=== PATIENT | female | born 1955 | race Caucasian/White ===

== ENCOUNTER 2020-07-20 06:35 | Emergency (ER) | payer BC ==
[2020-07-20] MEDS ORDERED: Sodium Chloride 0.9% 10 ML Syringe FLUSH PRN ×2 (07:06→08:22)
--- NOTE | 2020-07-20 07:13 | EDM.PDOC ---
ED HPI GENERAL MEDICAL PROBLEM - General Chief Complaint: Respiratory Problem Stated Complaint: SENT BY CAL, POSSIBLE BLOOD CLOT IN LUNG Time Seen by Provider: 07/20/20 06:59 Source of Information: Reports: Patient History Limitations: Reports: No Limitations - History of Present Illness INITIAL COMMENTS - FREE TEXT/NARRATIVE: 64-year-old female presents to the ED for CT of the chest to rule out pulmonary embolism. She was in [place] yesterday and did see her air surveillance operator to wanted an MRI of her chest and heart done. It was carried out and then she received a phone call on her way back to [place] last evening suggesting that she may have a blood clot in her lung. She stayed with a friend overnight here in [place] and her went on home to [place]. She is feeling mildly short of breath on minimal exertion she cannot state that there is been a definitive change in the last few days. She reports she is not been taking her Lasix for the last 3 to 4 days due to travel. She has chronic dependent edema of her lower extremities and history of congestive heart failure. She is also on Eliquis twice daily she does not know the dosage but its most likely 5 mg twice daily. She does not believe she has any kidney issues. She denies cough sputum production or hemoptysis. No pleuritic chest pain. No past history of DVT. O2 sats on room air at rest are 97%. Onset Date: 07/19/20 (told she may have a blood clot in her lung after MRI of her heart was done in [facility] yesterday. ) Duration: Hour(s):, Other (asymptomatic) Location: Reports: Chest Quality: Reports: Other Severity: Mild (Mild dyspnea which she does not believe is any worse than normal.) Improves with: Reports: Rest Worsens with: Reports: Movement (Walking) Context: Denies: Activity ( makes her short of breath at most times.), Exercise, Lifting, Sick Contact, Trauma, Other Associated Symptoms: Reports: Cough, Malaise. 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: Other (see below) (Only her regular medicines.) - Related Data Allergies Allergy/AdvReac Type Severity Reaction Status Date / Time polymyxin B Allergy Redness Verified 07/20/20 06:50 Sulfa (Sulfonamide Allergy Rash Verified 07/20/20 06:50 Antibiotics) trimethoprim Allergy Redness Verified 07/20/20 06:50 Home Meds: Home Meds Acetaminophen [Tylenol Arthritis] 650 mg PO ASDIRECTED PRN 04/01/19 [History] Apixaban [Eliquis] 5 mg PO BID 04/01/19 [History] Escitalopram Oxalate 20 mg PO DAILY 04/01/19 [History] Fluconazole [Diflucan] 400 mg PO DAILY 04/01/19 [History] Furosemide 20 mg PO DAILY 04/01/19 [History] Hydrocodone/Acetaminophen [Hydrocodon-Acetaminophen 5-325] 1 each PO ASDIRECTED PRN 04/01/19 [History] LORazepam 1 mg PO ASDIRECTED PRN 04/01/19 [History] Levothyroxine 75 mcg PO DAILY 04/01/19 [History] Loperamide HCl [Imodium A-D] 2 mg PO ASDIRECTED PRN 04/01/19 [History] Metoprolol Tartrate 12.5 mg PO DAILY 04/01/19 [History] Mirtazapine 15 mg PO BEDTIME 04/01/19 [History] Ondansetron [Zofran] 4 mg PO ASDIRECTED PRN 04/01/19 [History] Pantoprazole Sodium 40 mg PO DAILY 04/01/19 [History] Piperacillin/Tazobactam [Zosyn] 3.375 gm IV Q8HR 04/01/19 [History] Past Medical History HEENT History: Reports: None Cardiovascular History: Reports: Afib, Hypertension, SOB on Exertion Respiratory History: Reports: None Gastrointestinal History: Reports: GERD, Other (See Below) (Chronic diarrhea. 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: Musculoskeletal History: Reports: Fracture, Other (See Below) Other Musculoskeletal History: Osteopenia Neurological History: Reports: None Psychiatric History: Reports: Depression, Other (See Below) (Chronic insomnia) Endocrine/Metabolic History: Reports: Obesity/BMI 30+ Other Endocrine/Metabolic History: borderline diabetic Hematologic History: Reports: None Immunologic History: Reports: None Oncologic (Cancer) History: Reports: Breast Dermatologic History: Reports: None - Infectious Disease History 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, VRE - Past Surgical History GI Surgical History: Reports: Colon Other GI Surgeries/Procedures: septic abscess Female Surgical History: Reports: Mastectomy, Other (See Below) Other Female Surgeries/Procedures: axillary lymph node dissection Musculoskeletal Surgical History: Reports: ORIF Other Musculoskeletal Surgeries/Procedures:: hx of ORIF right Tibia and Right Femur ( has hardware in both) Oncologic Surgical History: Reports: Mastectomy Social & Family History - Family History Family Medical History: No Pertinent Family History Cardiac: Reports: Hypertension Other Cardiac Family History: Per patient, "both of my parents had heart issues." - Tobacco Use Tobacco Use Status *Q: Former Tobacco User Years of Tobacco use: 20 Packs/Tins Daily: 0.5 Used Tobacco, but Quit: Yes Month/Year Tobacco Last Used: 2006 - Caffeine Use Caffeine Use: Reports: Coffee, Soda - Recreational Drug Use Recreational Drug Use: No - Living Situation & Occupation Living situation: Reports: Occupation: Retired ED ROS GENERAL - Review of Systems Review Of Systems: See Below Constitutional: Reports: Malaise, Fatigue, Weight Gain (Believes she may have gained some weight since she stopped her Lasix a few days ago.). Denies: Fever, Chills, Night Sweats, Diaphoresis, Decreased Appetite, Weight Loss HEENT: Reports: Glasses Respiratory: Reports: Shortness of Breath. Denies: Wheezing, Pleuritic Chest Pain (On exertion.), Cough, Sputum, Hemoptysis Cardiovascular: Reports: Blood Pressure Problem, Dyspnea on Exertion, Edema (Chronic), Palpitations ( edema both lower extremities.). Denies: Chest Pain, Claudication, Lightheadedness, Orthopnea Endocrine: Reports: Fatigue ( History of atrial fibrillation) GI/Abdominal: Reports: Diarrhea : Reports: Frequency, Incontinence (Mainly stress-induced.) Musculoskeletal: Reports: Back Pain, Joint Pain Skin: Reports: No Symptoms (Knees hips low back neck and shoulders at times.) Neurological: Reports: No Symptoms Psychiatric: Reports: No Symptoms Hematologic/Lymphatic: Reports: No Symptoms Immunologic: Reports: No Symptoms ED EXAM, GENERAL - Physical Exam Exam: See Below Exam Limited By: No Limitations General Appearance: Alert, WD/WN, No Apparent Distress, Other (Temperature is 35.6 degrees which is likely incorrect. Heart rate is 72 and sinus respiratory is 18 with O2 sats of 97% on room air BP initially was one 1. Currently it is 145/80 54/88) Eye Exam: Bilateral Eye: Normal Inspection, PERRL (No scleral icterus or blepharal pallor.) Respiratory/Chest: No Respiratory Distress, Lungs Clear, No Accessory Muscle Use, Decreased Breath Sounds (Creased air into the lower 25% lung iverson bilaterally.). No: Normal Breath Sounds, Respiratory Distress, Rales, Rhonchi ( This is felt most likely due to her size.), Wheezing Cardiovascular: Regular Rate, Rhythm (Appears to be in regular rhythm today.), No Edema, No Gallop, No Murmur, No Rub. No: Normal Peripheral Pulses Peripheral Pulses: 1+: Posterior Tibial (L), Posterior Tibial (R), Dorsalis Pedis (L), Dorsalis Pedis (R), 2+: Carotid (L), Carotid (R) GI/Abdominal: Normal Bowel Sounds (Pulses to her feet are obscured by dependent edema of the feet.), Soft, Non-Tender, No Organomegaly, No Mass, Pelvis Stable, Other (Moderately obese. Abdominal girth limits ability to palpate solid organs.) Extremities: Pedal Edema (2+ pitting edema both lower extremities with bilateral significant venous stasis dermatitis up to the) Neurological: Alert, Oriented, CN II-XII Intact, Normal Cognition Psychiatric: Normal Affect, Normal Mood, Anxious Skin Exam: Warm, Dry, Intact (Mildly anxious.), Normal Color, No Rash Course - Vital Signs Last Recorded V/S: Last Vital Signs Temp 36.3 C 07/20/20 09:24 Pulse 66 07/20/20 09:24 Resp 20 07/20/20 09:24 BP 114/70 07/20/20 09:24 Pulse Ox 98 07/20/20 09:24 - Orders/Labs/Meds Orders: Active Orders 24 hr Category Date Time Status Peripheral IV Insertion Adult [OM.PC] Stat Oth 07/20/20 07:06 Ordered Labs: Laboratory Tests 07/20/20 07/20/20 07/20/20 Range/Units 07:15 07:15 07:15 WBC 4.35 (3.98-10.04) K/mm3 RBC 3.54 L (3.98-5.22) M/mm3 Hgb 12.7 (11.2-15.7) gm/dl Hct 37.8 (34.1-44.9) % MCV 106.8 H (79.4-94.8) fl MCH 35.9 H (25.6-32.2) pg MCHC 33.6 (32.2-35.5) g/dl RDW Std Deviation 51.6 H (36.4-46.3) fL Plt Count 124 L (182-369) K/mm3 MPV 10.3 (9.4-12.3) fl Neutrophils % (Manual) 61 H (40-60) % Band Neutrophils % 0 (0-10) % Lymphocytes % (Manual) 25 (20-40) % Atypical Lymphs % 0 % Monocytes % (Manual) 8 (2-10) % Eosinophils % (Manual) 5 (0.7-5.8) % Basophils % (Manual) 1 (0.1-1.2) Platelet Estimate Adequate RBC Morph Comment Normal D-Dimer, Quantitative 0.56 H (0.19-0.50) mg/L Sodium 141 (136-145) mEq/L Potassium 4.1 (3.5-5.1) mEq/L Chloride 105 (98-107) mEq/L Carbon Dioxide 25 (21-32) mEq/L Anion Gap 15.1 H (5-15) BUN 25 H (7-18) mg/dL Creatinine 1.2 H (0.55-1.02) mg/dL Est Cr Clr Drug Dosing 41.44 mL/min Estimated GFR (MDRD) 45 (>60) mL/min BUN/Creatinine Ratio 20.8 H (14-18) Glucose 121 H (80-115) mg/dL Calcium 8.5 (8.5-10.1) mg/dL Magnesium 1.8 (1.8-2.4) mg/dl Total Bilirubin 1.1 H (0.2-1.0) mg/dL AST 49 H (15-37) U/L ALT 37 (14-59) U/L Alkaline Phosphatase 120 H (46-116) U/L NT-Pro-B Natriuret Pep (0-125) pg/mL Total Protein 7.6 (6.4-8.2) g/dl Albumin 3.2 L (3.4-5.0) g/dl Globulin 4.4 gm/dL Albumin/Globulin Ratio 0.7 L (1-2) 07/20/20 Range/Units 07:15 WBC (3.98-10.04) K/mm3 RBC (3.98-5.22) M/mm3 Hgb (11.2-15.7) gm/dl Hct (34.1-44.9) % MCV (79.4-94.8) fl MCH (25.6-32.2) pg MCHC (32.2-35.5) g/dl RDW Std Deviation (36.4-46.3) fL Plt Count (182-369) K/mm3 MPV (9.4-12.3) fl Neutrophils % (Manual) (40-60) % Band Neutrophils % (0-10) % Lymphocytes % (Manual) (20-40) % Atypical Lymphs % % Monocytes % (Manual) (2-10) % Eosinophils % (Manual) (0.7-5.8) % Basophils % (Manual) (0.1-1.2) Platelet Estimate RBC Morph Comment D-Dimer, Quantitative (0.19-0.50) mg/L Sodium (136-145) mEq/L Potassium (3.5-5.1) mEq/L Chloride (98-107) mEq/L Carbon Dioxide (21-32) mEq/L Anion Gap (5-15) BUN (7-18) mg/dL Creatinine (0.55-1.02) mg/dL Est Cr Clr Drug Dosing mL/min Estimated GFR (MDRD) (>60) mL/min BUN/Creatinine Ratio (14-18) Glucose (80-115) mg/dL Calcium (8.5-10.1) mg/dL Magnesium (1.8-2.4) mg/dl Total Bilirubin (0.2-1.0) mg/dL AST (15-37) U/L ALT (14-59) U/L Alkaline Phosphatase (46-116) U/L NT-Pro-B Natriuret Pep 1393 H (0-125) pg/mL Total Protein (6.4-8.2) g/dl Albumin (3.4-5.0) g/dl Globulin gm/dL Albumin/Globulin Ratio (1-2) Meds: Medications Discontinued Medications Generic Name Dose Route Start Last Admin Trade Name Shashi PRN Reason Stop Dose Admin Sodium Chloride 100 mls @ 75 mls/hr 07/20/20 08:30 07/20/20 08:38 Normal Saline IV 75 mls/hr ASDIRECTED RIGOBERTO Administration Iopamidol 100 ml 07/20/20 08:22 07/20/20 08:38 Iopamidol 755 Mg/Ml 100 Ml Bottle IVPUSH 07/20/20 08:23 100 ml ONETIME ONE Administration Sodium Chloride 10 ml 07/20/20 07:06 07/20/20 07:15 Sodium Chloride 0.9% 10 Ml Syringe FLUSH 10 ml ASDIRECTED PRN Administration Keep Vein Open Sodium Chloride 10 ml 07/20/20 08:22 07/20/20 08:38 Sodium Chloride 0.9% 10 Ml Syringe FLUSH 10 ml ONETIME PRN Administration IV FLUSH - Radiology Interpretation Free Text/Narrative:: 64-year-old female presents to the ED to essentially have a CT pulmonary angiogram carried out as she was told after MRI yesterday that was done in [place] that she may have a blood clot in her lung. She is on Eliquis 5 mg twice daily which makes is highly unlikely to form a blood clot with the failure rate of less than 2.5% as long as she is compliant with medication. Her O2 sats on room air are 97%. I do not hear any rales in the lower lobes but air entry is diminished at both bases due to her size. Plan she will have routine labs performed including renal function prior to receiving further contrast and a D-dimer will be done. BNP and magnesium as well. - Re-Assessments/Exams Free Text/Narrative Re-Assessment/Exam: 07/20/20 07:53 Hematology reveals a normal white count at 4.35. Differential pending. Hemoglobin is 12.7 with hematocrit of 37.8 MCV is elevated at 106.8. Platelet count 124,000 low normal. Further assessment for the reason for the MRI of the heart being done was echo showed a right ventricular dysfunction. There was some concern of the restrictive pericarditis and this was the reason the MRI was done. The MRI of the heart proved to be normal. A copy of the MRI report reveals the left ventricle to be normal in size shape and function with an ejection fraction of 78%. There are no segmental wall motion abnormalities. Quantitative values are as noted above. The right ventricle is normal in size, shape, and function with ejection fraction 60%. Normal pericardium no evidence of constrictive pericarditis. Mild nonischemic myocardial fibrosis in the left ventricle at the right ventricular insertion points which may be seen in the setting of pulmonary hypertension. Mild dilation of the main and central pulmonary arteries which may be seen with underlying pulmonary hypertension as well. Central filling defect within the distal right lower lobe of the pulmonary artery suggesting pulmonary embolism. So the suggest further assessment with CTA chest. Mild aortic valve stenosis. Mild tricuspid regurgitation. 07/20/20 08:12 D-dimer is slightly elevated at 0.56. Sodium 141 with a potassium of 4.1. Chloride is 105 with a bicarb of 25. Anion gap is 15.1. BUN is 25 with a creatinine of 1.2 and a GFR 45. Glucose is 121. Calcium 8.5 with a magnesium 1.8. Total bilirubin is slightly elevated at 1.1 with an AST of 49 and ALT of 37. Alkaline phosphatase is 120. BNP is elevated at 1393. Total protein is 37.6 with an albumin fraction of 3.2. 07/20/20 09:08 Differential on the white count is 61% neutrophils with no bands cells. CT of the chest via pulmonary angiogram has been completed. No evidence of pulmonary embolism identified. There is mild cardiomegaly. Mild prominence of the pulmonary arteries appreciated. Thoracic aorta shows atherosclerotic change with no aneurysm. Coronary artery calcification is seen compared with atherosclerotic changes. Mediastinum shows scattered small lymph nodes which are felt to be within normal limits. No axillary adenopathy is seen. Gallstones are noted within the gallbladder. Low-density lesion is noted within the upper left lobe of the liver which measures 1.9 cm and has Hounsfield units compatible with a cyst. There is slight pleural thickening within the left lung base with a small amount of fluid. Several associated pleural-based densities are seen within the left lung which most likely represent areas of scarring. Lungs otherwise are clear with no acute parenchymal changes. Bone window settings were reviewed which show scattered degenerative change within the spine. Several old healed right-sided rib fractures are noted. Plan the patient will be discharged home at this time as no further treatment is indicated. Departure - Departure Time of Disposition: 09:10 Disposition: Home, Self-Care 01 Condition: Fair Clinical Impression: Mild congestive heart failure Dyspnea Qualifiers: Dyspnea type: dyspnea on exertion Qualified Code(s): R06.00 - Dyspnea, unspecified - Discharge Information *PRESCRIPTION DRUG MONITORING PROGRAM REVIEWED*: Not Applicable *COPY OF PRESCRIPTION DRUG MONITORING REPORT IN PATIENT FRACISCO: Not Applicable Instructions: Shortness of Breath, Adult, [id number], Heart Failure, Self Ca re, [id number] Referrals: Aguilar Neves MD [Primary Care Provider] - Forms: ED Department Discharge Additional Instructions: Evaluation in the emergency room this morning at the request of your personal air surveillance operator. You had an MRI of your heart yesterday in [place] to rule out restrictive pericarditis. I have a copy of the MRI report which indicates that there was no evidence of restrictive pericarditis but there was some evidence of mild pulmonary hypertension. There was some concern on the MRI report that t here possibly was a filling defect in one of your right lower lobar pulmonary arteries that supply along with blood. This was worrisome for a blood clot. Lab test done here in the emergency room revealed your D-dimer to be minimally elevated at 0.56 with normal being up to 0.50. Other lab work proved to be within normal limits other than mild renal insufficiency classified as stage IIIa. CT scan of the chest was performed with dye i.e. CT pulmonary angiogram and no blood clots were identified within the lungs. Heart is mildly enlarged. Of note you do have gallstones within the gallbladder identified. There is also some calcification appreciated within the arteries that supply your heart with blood supply. There is some scar tissue in the base of the left lung and a small amount of fluid. There is evidence of multiple old healed rib fractures on the right side. At this time no other treatment is indicated. I will send copies of the CT report to your air surveillance operator in [place]. Sepsis Event Note (ED) - Evaluation Sepsis Screening Result: No Definite Risk - Focused Exam Vital Signs: Vital Signs Temp Pulse Resp BP Pulse Ox 07/20/20 09:24 36.3 C 66 20 114/70 98 07/20/20 06:45 35.6 C L 72 18 154/88 H 97 - My Orders Last 24 Hours: My Active Orders 07/20/20 07:06 Peripheral IV Insertion Adult [OM.PC] Stat - Assessment/Plan Last 24 Hours: My Active Orders 07/20/20 07:06 Peripheral IV Insertion Adult [OM.PC] Stat
[2020-07-20] MEDS ORDERED: Iopamidol 755 Mg/ML 100 ML Bottle IVPUSH ONE (08:22)
[2020-07-20] MEDS ORDERED: Sodium Chloride 0.9% 100 ML IV SCH (08:30)
--- NOTE | 2020-07-20 09:07 | CT ---
CT chest Technique: Multiple axial sections were obtained from above the lung apices inferiorly through the lung bases. Intravenous contrast was utilized. Reconstructed coronal and sagittal images were obtained. Comparison: No prior chest study is available at this time for comparison. Findings: Pulmonary arteries are well opacified. No filling defects are seen to indicate pulmonary embolism. Thoracic aorta shows atherosclerotic change with no aneurysm. Coronary artery calcification is seen compatible with atherosclerotic change. Mediastinum shows scattered small lymph nodes which are felt to be within normal limits. No axillary adenopathy is seen. Gallstones are noted within the gallbladder. Low density lesion is noted within the upper left lobe of the liver which measures 1.9 cm and has Hounsfield unit measurements of a cyst. There is slight pleural thickening within the left lung base with a small amount of fluid. Several associated pleural-based densities are seen within the left lung which most likely represent areas of scarring. Lungs otherwise are clear with no acute parenchymal change. Bone window settings were reviewed which show scattered degenerative change within the spine. Several old healed right-sided rib fractures are noted. Impression: 1. No findings of pulmonary embolism. 2. Slight pleural thickening and minimal pleural effusion within the left lung base. Areas of nodular pleural-based densities which are most likely due to scars although I recommend a repeat chest CT without contrast in 9 months to confirm stability. This repeat study would occur in April,. 3. Gallstones and other findings as noted above. Diagnostic code #3
[2020-07-20 09:28] VITALS: BP 114/70; PULSE 66
== END 2020-07-20 09:34 | disposition home or self-care (01) ==
LOC: JD.ED 06:35
DX: I11.0 Hypertensive heart disease with heart failure (principal); I50.9 Heart failure, unspecified; I48.91 Unspecified atrial fibrillation; K21.9 Gastro-esophageal reflux disease without esophagitis; E66.9 Obesity, unspecified; Z87.891 Personal history of nicotine dependence; Z79.899 Other long term (current) drug therapy; Z68.41 Body mass index [BMI] 40.0-44.9, adult; Z88.1 Allergy status to other antibiotic agents; Z88.2 Allergy status to sulfonamides; Z79.01 Long term (current) use of anticoagulants
CPT/HCPCS: 36415; 71275; 80053; 83735; 83880; 85007; 85027; 85379; 99285; Q9967; 99284